=== PATIENT | female | born 1960 | race Caucasian/White ===

== ENCOUNTER 2017-05-20 21:22 | Emergency (ER) | payer OTHER ==
[~2017-05-20] VITALS: Ht 170.2 cm; Wt 77.0 kg
[2017-05-20 21:24] VITALS: BP 162/85; PULSE 98; RESP 14; TEMP 97.4; O2SAT 100
[2017-05-20 22:57] VITALS: BP 124/80; PULSE 70; RESP 16; O2SAT 97
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
[2017-05-20] MEDS ORDERED: ULTR50TA5 PO ×2 (23:58)
== END 2017-05-21 00:14 | disposition home or self-care (01) ==
LOC: NEPD 21:22
DX: R07.89 Other chest pain (principal); S80.212A Abrasion, left knee, initial encounter; S60.812A Abrasion of left wrist, initial encounter; Y04.8XXA Assault by other bodily force, initial encounter; Z88.5 Allergy status to narcotic agent
CPT/HCPCS: 71020; 99283